=== PATIENT | female | born 1965 | race Caucasian/White ===

== ENCOUNTER 2020-02-17 15:04 | Observation (INO) | payer MEDICAID, SELFPAY ==
[2020-02-17 15:23] VITALS: BMI 28.8
[2020-02-17 15:40] VITALS: BMI 28.8
[2020-02-17 15:46] VITALS: BP 153/80; PULSE 90; RESP 18; TEMP 36.8; O2SAT 99
--- NOTE | 2020-02-17 16:19 | EKG12_ITS ---
Test Reason : PRE OP Blood Pressure : / mmHG Vent. Rate : 081 BPM Atrial Rate : 081 BPM P-R Int : 178 ms QRS Dur : 080 ms QT Int : 370 ms P-R-T Axes : 055 -03 028 degrees QTc Int : 429 ms Normal sinus rhythm Normal ECG No previous ECGs available Confirmed by JOSE DE JESUS LUNDBERG, GERARD ([id number]), video news editor CONRADO UNDERWOOD ([id number]) on 02/23/2020 10:41:35 AM Referred By: ANN Confirmed By:GERARD DELA CRUZ MD
[2020-02-17 16:30] VITALS: BP 153/80; PULSE 90; RESP 18; TEMP 36.8; O2SAT 99; BMI 28.8
--- NOTE | 2020-02-17 16:36 | PCM.PN.HOSP ---
<Angel Neri - Last Filed: 02/17/20 16:36> Reason for Visit: Medical management - going to OR for debridement of left foot osteo Subjective: This is a 54 year old female with pmhx of T1 DM, HTN, HLD, neuropathy, GERD, depression, who has been on an extended course of treatment for left foot osteo. The patient developed a nonhealing ulcer on her left foot that never responded to conservative measures. Ultimately she developed osteomyelitis of this foot and has been treating it with IV vancomycin and oral cipro at home. Yesterday Dr. Pang took her to the OR for debridement, and is taking her for further debridement this evening. Currently the patient is resting comfortably in bed NAD. She denies SOB/cough, fever/chills, nausea, vomiting, abdominal pain. She has no pain at this time. She states she is otherwise feeling well. She is supposed to be on IV vanco and oral cipro into March. Vitals/I&O's: Vital Signs Temp Pulse Resp BP Pulse Ox 98.2 F 90 18 153/80 H 99 02/17/20 16:30 02/17/20 16:30 02/17/20 16:30 02/17/20 16:30 02/17/20 16:30 Oxygen Delivery Method Room Air Weight: 189 lb 6.4 oz Body Mass Index (BMI) 28.8 General: Alert, Oriented x3, Cooperative HEENT: Atraumatic, PERRLA, EOMI, Normocephalic Neck: Supple, No JVD, Negative Carotid Bruits Lungs: Clear to auscultation, Normal air movement Cardiovascular: Regular rate, No murmurs Abdomen: Bowel Sounds Present, Soft, Non Tender Extremities: No edema, Capillary Refill Less than 3 Seconds Skin: No rashes, No breakdown Musculoskeletal: No Tenderness to Palpation of Joints or Extremities Neurological: Cranial nerves II-XII grossly intact Psych/Mental Status: Normal Affect, Appropriate, Alert and oriented to time, place, person, mood and affect Current Medications Heparin Sodium (Beef Lung) (Heparin Pf Lock 10 Units/Ml 50 Units/5 Ml Syringe) 50 units IV UD PRN PRN Reason: PICC Line Heparin Flush Vancomycin IV Pharmacy to Dose (1 ea/ Sodium Chloride) 500 mls @ 250 mls/hr IV X1 PRN; Protocol PRN Reason: Rx to Dose Sodium Chloride (0.9% Saline Lock 10 Ml Syringe) 10 - 40 ml IV UD PRN PRN Reason: Open End PICC Flush Sodium Chloride (0.9 % Nacl (Sterile) Posiflush 10 Ml) 10 - 40 ml IV UD PRN PRN Reason: Port access or dressing change STROKE Vital Signs/Narrative: Vital Signs Temp Pulse Resp BP Pulse Ox 02/17/20 16:30 98.2 F 90 18 153/80 H 99 02/17/20 15:46 98.2 F 90 18 153/80 H 99 Medical Necessity - Tobacco Use Smoking Status: Never smoker Assessment/Plan 1. Left foot osteomyelitis - continue vanco, cipro as previously directed. Going to OR with Dr. Pang for further debridement tonight, had operation yesterday as well. 2. T1 DM - pt without her Pump at this point. Will continue lantus and humalog at prior doses and titrate to response. SSI with accuchecks while NPO. 3. HTN - continue metoprolol 4. HLD - continue zetia 5. GERD - continue PPI 6. Depression - continue effexor and trazodone. Thank you for the opportunity to participate in the care of this patient. This patient was seen by Angel Neri PA-C under the supervision of Doctor Jodee. <Randee Ellsworth - Last Filed: 02/17/20 18:53> Vitals/I&O's: Vital Signs Temp Pulse Resp BP Pulse Ox 98.2 F 90 18 153/80 H 99 02/17/20 16:30 02/17/20 16:30 02/17/20 16:30 02/17/20 16:30 02/17/20 16:30 Oxygen Delivery Method Room Air Weight: 189 lb 6.4 oz Body Mass Index (BMI) 28.8 Laboratory Results 02/17/20 16:29: POC Glucose 236 H 02/17/20 16:31: WBC 5.9, RBC 4.06 L, Hgb 9.2 L, Hct 31.0 L, MCV 76.4 L, MCH 22.7 L, MCHC 29.7 L, RDW Std Deviation 38.8, RDW Coeff of Norberto 14.0, Plt Count 331, MPV 9.3, Immature Gran % (Auto) 0.200, Neut % (Auto) 54.7, Lymph % (Auto) 29.7, [place] % (Auto) 7.3, Eos % (Auto) 7.3 H, Baso % (Auto) 0.8, Absolute Neuts (auto) 3.2, Absolute Lymphs (auto) 1.75, Nucleated RBC % 0 02/17/20 16:31: Sodium 135 L, Potassium 3.7, Chloride 98, Carbon Dioxide 33.0 H, Anion Gap 4 L, BUN 12, Creatinine 1.40 H, Estim Creat Clear Calc 47.42, Est GFR (MDRD) Af Amer 51 L, Est GFR (MDRD) Non-Af 42 L, BUN/Creatinine Ratio 8.6 L, Glucose 223 H, Calcium 9.1 02/17/20 16:31: Hemoglobin A1c 9.3 H 02/17/20 16:31: Vancomycin Trough Pending Current Medications Ciprofloxacin HCl (Ciprofloxacin 500 Mg Tablet) 500 mg PO BID [facility] Dextrose (Dextrose 50%-Water 25 Gm/50 Ml Disp.Syrin) 0 gm IV X1 PRN; Protocol PRN Reason: Hypoglycemia Ezetimibe (Ezetimibe 10 Mg Tablet) 10 mg PO QHS [facility] Glucagon (Glucagon 1 Mg/Ml Syringe) 1 mg IM .X1 PRN PRN Reason: Hypoglycemia Heparin Sodium (Beef Lung) (Heparin Pf Lock 10 Units/Ml 50 Units/5 Ml Syringe) 50 units IV UD PRN PRN Reason: PICC Line Heparin Flush Vancomycin IV Pharmacy to Dose (1 ea/ Sodium Chloride) 500 mls @ 250 mls/hr IV X1 PRN; Protocol PRN Reason: Rx to Dose Insulin Glargine (Insulin Glargine 100 Units/Ml Pen) 52 units SC QHS [facility] Insulin Human Lispro (Insulin Lispro 100 Unit/Ml Insuln.Pen) 0 unit SC ACHS [facility]; Protocol Metoprolol Tartrate (Metoprolol Tartrate 50 Mg Tablet) 50 mg PO BID [facility] Non-Formulary Medication (Vancomycin/Water For Inj (Peg) [Vancomycin 1 Gram/200 Ml Bag]) 1 gm IV DAILY [facility] Pantoprazole Sodium (Pantoprazole Sodium 20 Mg Tablet) 20 mg PO DAILY [facility] Pramipexole Dihydrochloride (Pramipexole Di-Hcl 0.5 Mg Tablet) 1.5 mg PO QHS [facility] Sodium Chloride (0.9% Saline Lock 10 Ml Syringe) 10 - 40 ml IV UD PRN PRN Reason: Open End PICC Flush Sodium Chloride (0.9 % Nacl (Sterile) Posiflush 10 Ml) 10 - 40 ml IV UD PRN PRN Reason: Port access or dressing change Trazodone HCl (Trazodone 100 Mg Tablet) 100 mg PO QHS [facility] Venlafaxine HCl (Venlafaxine Xr 150 Mg Capsule) 150 mg PO DAILY [facility] STROKE Vital Signs/Narrative: Vital Signs Temp Pulse Resp BP Pulse Ox 02/17/20 16:30 98.2 F 90 18 153/80 H 99 02/17/20 15:46 98.2 F 90 18 153/80 H 99 Assessment/Plan Patient seen by Angel Neri PA-C under my supervision. Patient was admitted under the service of podiatry for left toe postop bleeding. Patient had surgery by podiatry on her left foot on account of osteomyelitis. Postop course was complicated by bleeding. A drain was put in but this fell out. Patient has had persistent bleeding so podiatry decided to admit her today for repeat surgery to try to secure hemostasis and place another drain in. Hospitalist service was consulted for medical management. Patient seen and examined. She had no complaints. Review of stems otherwise negative. She does have diabetes mellitus with peripheral neuropathy and states that her A1c at the last check was 10 and this had improved from 14 back in July 2019. He usually uses insulin pump but she did not have it at time of review. Review systems otherwise negative. O/E: Vital Signs Temp Pulse Resp BP Pulse Ox 98.2 F 90 18 153/80 H 99 02/17/20 16:30 02/17/20 16:30 02/17/20 16:30 02/17/20 16:30 02/17/20 16:30 General: Alert, Oriented x3, Cooperative HEENT: Atraumatic, PERRLA, EOMI, Normocephalic Neck: Supple, No JVD, Negative Carotid Bruits Lungs: Clear to auscultation, Normal air movement Cardiovascular: Regular rate, No murmurs Abdomen: Bowel Sounds Present, Soft, Non Tender Extremities: No edema, Capillary Refill Less than 3 Seconds Skin: No rashes, No breakdown; right foot wrapped in ETHAN bandage Musculoskeletal: No Tenderness to Palpation of Joints or Extremities Neurological: Cranial nerves II-XII grossly intact Psych/Mental Status: Normal Affect, Appropriate, Alert and oriented to time, place, person, mood and affect Sinus continue vancomycin and Zosyn as per podiatry. For Elvin surgery by podiatry today to try to secure hemostasis to stop bleeding. She notes that without her insulin pump today so placed on Lantus 52 units nightly and insulin sliding scale. Continue metoprolol for hypertension. She is on Mirapex for restless leg syndrome. Rest as per Angel Neri PA-C's notes which I have reviewed and endorsed. Thank you for the courtesy of the consult. We will continue to follow with you. Please contact hospitalist service if you have any questions or concerns. Inpatient E&M: [id number] Subs Hosp L2
[2020-02-17 16:40] LABS: Bedside Glucose 236 mg/dL (70-110)
[2020-02-17 17:10] LABS: Absolute Lymphocyte Count 1.75 X10^3/uL (0.83-4.51); Absolute Neutrophil Count 3.2 X10^3/uL (2.0-7.7); Basophil# 0.05 X10^3/uL; Basophil% 0.8 % (0-1); Eosinophil# 0.43 X10^3/uL; Eosinophils% 7.3 % (0-5); Hemoglobin 9.2 g/dL (12.0-15.0); Lymphocyte # 1.75 X10^3/ul (4.0); Lymphocyte % 29.7 % (19-41); Mean Corp Hgb Conc 29.7 g/dL (32-36); Mean Corpuscular Hgb 22.7 pg (27.0-32.0); Mean Corpuscular Volume 76.4 fL (81-99); Mean Platelet Vol. 9.3 fl (6.2-12.0); Monocyte# 0.43 X10^3/uL; Monocyte% 7.3 % (0-10); NRBC Flagged by Analyzer 0 % (0-5); Neutrophil # 3.23 X10^3/uL (2.7-7.7); Neutrophil % 54.7 % (47-70); Platelet Count 331 K/mm3 (150-450); RBC Distribution Width SD 38.8 fl (35.1-43.9); Red Blood Count 4.06 M/mm3 (4.2-5.4); White Blood Count 5.9 K/mm3 (4.4-11.0)
[2020-02-17 17:41] LABS: Anion Gap 4 (5-15); BUN 12 mg/dL (7-18); BUN/Creat Ratio 8.6 RATIO (10-20); Calcium,Total 9.1 mg/dL (8.5-10.1); Chloride 98 mmol/L (98-107); EST Glomerular Filtration Rate 42 mL/min (>60); Est Glom Filt Rate - Afr Amer 51 mL/min (>60); Estimated Creatinine Clearance 47.42 ml/min; Glucose 223 mg/dL (74-106); Potassium 3.7 mmol/L (3.5-5.1); Sodium Level 135 mmol/L (136-145)
[2020-02-17 17:53] LABS: Hemoglobin A1c 9.3 % (3.8-5.6)
[2020-02-17] MEDS: Thrombin 5,000 IU Kit (PSA) 5,000 IU Vial 5000 IU (18:20)
[2020-02-17 18:57] LABS: Vancomycin, Trough Level 3.8 ug/mL (5.0-15.0)
--- NOTE | 2020-02-17 19:25 | RAD_ITS ---
STUDY: X-RAY - LEFT FOOT CLINICAL: Female, 54 years old. POST OP DRAIN PLACEMENT, S/P 1ST RAY RESECTION. TECHNIQUE: 2 view(s) of the foot. COMPARISON: None. FINDINGS: Postsurgical changes status post resection of the great toe to the mid shaft of the metatarsal. There is diffuse soft tissue swelling with residual gas in the soft tissues, surgical clips and percutaneously placed drain. RAD/Foot 2 Views IMPRESSION: Postop changes status post resection of the great toe through the first metatarsal Electronically Signed: Lux Yeh MD at 22:51 EST , Service support ,
[2020-02-17] MEDS: 0.9% Saline Lock 10 ML Syringe IV (19:31)
[2020-02-17 20:00] VITALS: BP 168/80; PULSE 94; RESP 16; TEMP 36.7; O2SAT 100
--- NOTE | 2020-02-17 20:03 | PHA.PHARE_ITS ---
Consult Pharmacy has been consulted to manage selected antiobiotic: Vancomycin Type of Consult: New start Suspected Infection: Osteomyelitis Prior Doses of Antibiotics Received/Current Regimen: the patient had been on 1gram IV daily before admission to the hospital but e vidently had not had a dose since 2 days ago Labs: Sodium 135 mmol/L (136-145) L 02/17/20 16:31 Potassium 3.7 mmol/L (3.5-5.1) 02/17/20 16:31 Chloride 98 mmol/L (98-107) 02/17/20 16:31 Carbon Dioxide 33.0 mmol/L (21.0-32.0) H 02/17/20 16:31 Anion Gap 4 (5-15) L 02/17/20 16:31 BUN 12 mg/dL (7-18) 02/17/20 16:31 Creatinine 1.40 mg/dL (0.55-1.02) H 02/17/20 16:31 Est GFR (MDRD) Af Amer 51 mL/min (>60) L 02/17/20 16:31 Est GFR (MDRD) Non-Af 42 mL/min (>60) L 02/17/20 16:31 BUN/Creatinine Ratio 8.6 RATIO (10-20) L 02/17/20 16:31 Glucose 223 mg/dL (74-106) H 02/17/20 16:31 Vancomycin Trough 3.8 ug/mL (5.0-15.0) L 02/17/20 16:31 Weight used for dosin.9 kg Estimated Creatinine Clearance: 53.9ml/min Goal Trough: 15-20 mcg/mL Pharmacy Plan for Drug Dosing: Since the patient had been on vancomycin upon admission, a trough level was taken to see where it was at. That came back at 3.8. This is well below the goal of 15-20 so will give an initial dose of 1250mg x1, then continue with 750mg IV q12h per [facility] dosing protocol. Will order another trough to be drawn before the 4th dose here at the hospital. The patient's CrCl of 53.9ml/min was calculated using an adjusted body weight of 72.7kg. Pharmacy Service will continue to monitor and adjust dosing as required. Follow-Up Labs: Trough Vancomycin Labs to be done on [date and time ordered]: 02/19/20 07:30
--- NOTE | 2020-02-17 21:07 | OP.PCM_ITS ---
Report of Operation Date of Procedure: 02/17/20 Pre-Operative Diagnosis: post-op bleeding/hematoma Post-Operative Diagnosis: Controlled post-op bleeding/hematoma, left foot Surgery/Procedure Performed:: Incision and drainage of left foot. Placement of percutaneous drain Description of Surgical Findings:: no abscess noted. Minimal clot found intra-op NO active bleeding present. Type of Anesthesia:: Local Drains: percutaneous tls drain Estimated Blood Loss (mL): 5 ml Description of Procedure: Patient is a 54 year old female who underwent partial 1st ray amputation of left foot yesterday at [facility] for ongoing osteomyelitis. During surgery, bleeding was controlled with topical thrombin, gel foam and surgicel. A percutaneous drain was placed but upon patient arrival home, she was trying to change her dressing and she accidently pulled the drain from her foot. I had patient present to the office today and there was mix of serous drainage mixed with blood on her dressing. I discussed the findings from my exam today. we discussed monitoring vs removing suture and treating with wound vac vs taking her to the operating room, removing suture and placing drain in the left foot. This patient does not wish to use wound vac if at possible. For this reason, I admitted her to the hospital with plans of taking her to the operating room for further evaluation of left foot postop bleeding. I discussed risks of procedure not limited to infection, pain, swelling, bleeding, hematoma, slow wound healing, need for wound vac should the wound not progress as expected. I informed patient that her poor control of diabetes does risk slow healing. she understands this. I informed patient that if her wound fails to progress, will require wound vac for secondary closure. All risks benefits and alternatives discussed. Patient consents to proceed with I&D and placement of drain. Patient was transferred to operating room and placed on the operating room table in supine position. A local anesthetic was injected to the left foot. The left lower extremity was prepped and draped in the usual aseptic technique. A time out was then performed making note of procedure. ATtention was then directed to the left foot. All suture was removed. Manual compression of wound allowed opening of the incision. I evaluated the left foot. There was no abscess present. A very small clot was found and approximately 2 mm. There was no active bleeding present. The wound was irrigated with saline. Topical thrombin mixed with gel foam was placed within incision and compression was held for approximately 7 minutes. The gel foam was removed. A percutaneous tls drain was placed and secured in place with suture. Testing of the drain to see if pull out would occur found no migration of drain. The surgical incision was then closed with 3-0 nylon. the wound edges came together nicely without tension. Aquacel was applied to incision followed by maile blackmon abd and jeanine. Patient was then transferred to [facility] floor in stable condition. will continue with vancomycin IV and cipro. will evaluate patient on pod #1. possible discharge tomorrow if medically stable.
[2020-02-17] MEDS: Insulin Lispro 100 UNIT/ML INSULN.PEN SC (21:34)
[2020-02-17] MEDS: Pramipexole Di-HCl 0.5 MG Tablet 1.5 MG PO (21:39)
[2020-02-17] MEDS: traZODone 100 MG Tablet PO (21:39)
[2020-02-17] MEDS: Ezetimibe 10 MG Tablet PO (21:39)
[2020-02-17 21:40] VITALS: BP 168/80; PULSE 94
[2020-02-17] MEDS: Ciprofloxacin 500 MG Tablet PO (21:40)
[2020-02-17] MEDS: Metoprolol Tartrate 50 MG Tablet PO (21:40)
[2020-02-18 00:46] LABS: Bedside Glucose 446 mg/dL (70-110)
[2020-02-18 02:50] VITALS: BP 150/90; PULSE 84; RESP 18; TEMP 36.6; O2SAT 99
--- NOTE | 2020-02-18 06:58 | PCM.PN.SRG ---
Subjective: patient seen at bedside s/p I&D with placement of drain. patient denies any pain. patient denies n/v/f/c. Objective: Patient is alert and orientated x 3. patient does not appear in any distress. left foot with surgical incision approximated without redness or drainage. there is very slight maceration along central incision. Drain is in place and securely anchored to skin. There is approximately 4 cc of clear drainage mixed with blood. no active bleeding noted. no mei pus. left foot appears stable xrays of left foot reviewed. there are post-surgical changes consistent with recent partial first ray resection. mild soft-tissue swelling with post-op air consistent with recent surgery. - Physical Exam Vitals/I&O's: Vital Signs Temp Pulse Resp BP Pulse Ox 97.8 F 84 18 150/90 H 99 02/18/20 02:50 02/18/20 02:50 02/18/20 02:50 02/18/20 02:50 02/18/20 02:50 Oxygen Delivery Method Room Air Weight: 85.91 kg Body Mass Index (BMI) 28.8 Intake and Output for Last 24 Hours 02/16/20 02/17/20 02/18/20 23:59 23:59 23:59 Intake Total 275 / 275 1200 / 1200 Output Total 704 / 704 Balance 275 / 275 496 / 496 Laboratory Results 02/17/20 16:29: POC Glucose 236 H 02/17/20 16:31: WBC 5.9, RBC 4.06 L, Hgb 9.2 L, Hct 31.0 L, MCV 76.4 L, MCH 22.7 L, MCHC 29.7 L, RDW Std Deviation 38.8, RDW Coeff of Norberto 14.0, Plt Count 331, MPV 9.3, Immature Gran % (Auto) 0.200, Neut % (Auto) 54.7, Lymph % (Auto) 29.7, [place] % (Auto) 7.3, Eos % (Auto) 7.3 H, Baso % (Auto) 0.8, Absolute Neuts (auto) 3.2, Absolute Lymphs (auto) 1.75, Nucleated RBC % 0 02/17/20 16:31: Sodium 135 L, Potassium 3.7, Chloride 98, Carbon Dioxide 33.0 H, Anion Gap 4 L, BUN 12, Creatinine 1.40 H, Estim Creat Clear Calc 47.42, Est GFR (MDRD) Af Amer 51 L, Est GFR (MDRD) Non-Af 42 L, BUN/Creatinine Ratio 8.6 L, Glucose 223 H, Calcium 9.1 02/17/20 16:31: Hemoglobin A1c 9.3 H 02/17/20 16:31: Vancomycin Trough 3.8 L 02/17/20 21:31: POC Glucose 446 H Current Medications Ciprofloxacin HCl (Ciprofloxacin 500 Mg Tablet) 500 mg PO BID [facility] Last Admin: 02/17/20 21:40 Dose: 500 mg Documented by: Dextrose (Dextrose 50%-Water 25 Gm/50 Ml Disp.Syrin) 0 gm IV X1 PRN; Protocol PRN Reason: Hypoglycemia Ezetimibe (Ezetimibe 10 Mg Tablet) 10 mg PO QHS [facility] Last Admin: 02/17/20 21:39 Dose: 10 mg Documented by: Glucagon (Glucagon 1 Mg/Ml Syringe) 1 mg IM .X1 PRN PRN Reason: Hypoglycemia Heparin Sodium (Beef Lung) (Heparin Pf Lock 10 Units/Ml 50 Units/5 Ml Syringe) 50 units IV UD PRN PRN Reason: PICC Line Heparin Flush Vancomycin IV Pharmacy to Dose (1 ea/ Sodium Chloride) 500 mls @ 250 mls/hr IV X1 PRN; Protocol PRN Reason: Rx to Dose Sodium Chloride () 250 mls @ 15 mls/hr IV .[id number] PRN PRN Reason: Saline Flush Sodium Chloride () 250 mls @ 15 mls/hr IV .[id number] PRN PRN Reason: Additional IVPB Infusion Vancomycin HCl 750 mg/ Sodium (Chloride) 265 mls @ 250 mls/hr IV Q12H [facility] Insulin Glargine (Insulin Glargine 100 Units/Ml Pen) 52 units SC QHS [facility] Last Admin: 02/17/20 21:35 Dose: 52 u Documented by: Insulin Human Lispro (Insulin Lispro 100 Unit/Ml Insuln.Pen) 0 unit SC ACHS [facility]; Protocol Last Admin: 02/17/20 21:34 Dose: 7 u Documented by: Metoprolol Tartrate (Metoprolol Tartrate 50 Mg Tablet) 50 mg PO BID [facility] Last Admin: 02/17/20 21:40 Dose: 50 mg Documented by: Nutritional Formula (Lactose Free) (Glucerna Shake 120 Ml Liquid) 120 ml PO TIDCM [facility] Pantoprazole Sodium (Pantoprazole Sodium 20 Mg Tablet) 20 mg PO DAILY [facility] Pramipexole Dihydrochloride (Pramipexole Di-Hcl 0.5 Mg Tablet) 1.5 mg PO QHS [facility] Last Admin: 02/17/20 21:39 Dose: 1.5 mg Documented by: Sodium Chloride (0.9% Saline Lock 10 Ml Syringe) 10 - 40 ml IV UD PRN PRN Reason: Open End PICC Flush Last Admin: 02/17/20 19:31 Dose: 10 ml Documented by: Sodium Chloride (0.9 % Nacl (Sterile) Posiflush 10 Ml) 10 - 40 ml IV UD PRN PRN Reason: Port access or dressing change Trazodone HCl (Trazodone 100 Mg Tablet) 100 mg PO QHS [facility] Last Admin: 02/17/20 21:39 Dose: 100 mg Documented by: Venlafaxine HCl (Venlafaxine Xr 150 Mg Capsule) 150 mg PO DAILY [facility] Medical Necessity - Tobacco Use Smoking Status: Never smoker Assessment/Plan patient is s/p partial first ray resection with post-op bleeding. no bleeding noted on intra-op assessment. post op dressing change performed today. foot appears stable. I am going to leave drain in for a few more days. I will have patient go home today and I will provide her with tubing to change drain if necessary. I will have her change dressing daily consisting of aquacel to incision, 4x4 guaze, maile and jeanine. patient is permitted to ambulate to left heel only. ok for discharge once medically stable.
[2020-02-18] MEDS: Insulin Lispro 100 UNIT/ML INSULN.PEN SC ×2 (07:01→12:18)
[2020-02-18 07:40] VITALS: BP 159/79; PULSE 79; RESP 16; TEMP 37; O2SAT 100
[2020-02-18 07:41] VITALS: PULSE 79
[2020-02-18] MEDS: Metoprolol Tartrate 50 MG Tablet PO (07:41)
[2020-02-18] MEDS: Venlafaxine XR 150 MG Capsule PO (07:41)
[2020-02-18] MEDS: Ciprofloxacin 500 MG Tablet PO (07:41)
[2020-02-18] MEDS: Pantoprazole Sodium 20 MG Tablet PO (07:41)
[2020-02-18] MEDS: Glucerna Shake 120 ML LIQUID PO ×2 (07:51→12:17)
[2020-02-18] MEDS: 0.9 % NaCl (Sterile) Posiflush 10 mL IV (08:00)
--- NOTE | 2020-02-18 08:02 | PN_ITS ---
Reason for Visit: Osteomyelitis involving the left foot Subjective: Patient is a 54-year-old lady with history of osteomyelitis involving the left foot who underwent debridement on 02/17/2020. Hospitalist service was consulted to assist with management of patient medical comorbidities Objective: GENERAL: cooperative HEENT: Atraumatic; EYES; Anicteric, Normal Conjunctiva NECK; supple, normal thyroid, RESPIRATORY: Diminished to auscultation CARDIOVASCULAR: Regular S1 S2, GI: soft, normoactive bowel sounds, : No Renal angle tenderness; EXTREMITIES: Left foot in surgical dressing MUSCULOSKELETAL: no muscle waisting NEURO: Awake; no lateralizing signs. SKIN: No Rash PSYCH; Flat affect Vitals/I&O's: Vital Signs Temp Pulse Resp BP Pulse Ox 97.8 F 79 18 150/90 H 99 02/18/20 02:50 02/18/20 07:41 02/18/20 02:50 02/18/20 02:50 02/18/20 02:50 Oxygen Delivery Method Room Air Weight: 85.91 kg Body Mass Index (BMI) 28.8 Intake and Output for Last 24 Hours 02/16/20 02/17/20 02/18/20 23:59 23:59 23:59 Intake Total 275 / 275 1200 / 1200 Output Total 704 / 704 Balance 275 / 275 496 / 496 Laboratory Results 02/17/20 16:29: POC Glucose 236 H 02/17/20 16:31: WBC 5.9, RBC 4.06 L, Hgb 9.2 L, Hct 31.0 L, MCV 76.4 L, MCH 22.7 L, MCHC 29.7 L, RDW Std Deviation 38.8, RDW Coeff of Norberto 14.0, Plt Count 331, MPV 9.3, Immature Gran % (Auto) 0.200, Neut % (Auto) 54.7, Lymph % (Auto) 29.7, [place] % (Auto) 7.3, Eos % (Auto) 7.3 H, Baso % (Auto) 0.8, Absolute Neuts (auto) 3.2, Absolute Lymphs (auto) 1.75, Nucleated RBC % 0 02/17/20 16:31: Sodium 135 L, Potassium 3.7, Chloride 98, Carbon Dioxide 33.0 H, Anion Gap 4 L, BUN 12, Creatinine 1.40 H, Estim Creat Clear Calc 47.42, Est GFR (MDRD) Af Amer 51 L, Est GFR (MDRD) Non-Af 42 L, BUN/Creatinine Ratio 8.6 L, Glucose 223 H, Calcium 9.1 02/17/20 16:31: Hemoglobin A1c 9.3 H 02/17/20 16:31: Vancomycin Trough 3.8 L 02/17/20 21:31: POC Glucose 446 H Current Medications Ciprofloxacin HCl (Ciprofloxacin 500 Mg Tablet) 500 mg PO BID [facility] Last Admin: 02/18/20 07:41 Dose: 500 mg Documented by: Dextrose (Dextrose 50%-Water 25 Gm/50 Ml Disp.Syrin) 0 gm IV X1 PRN; Protocol PRN Reason: Hypoglycemia Ezetimibe (Ezetimibe 10 Mg Tablet) 10 mg PO QHS [facility] Last Admin: 02/17/20 21:39 Dose: 10 mg Documented by: Glucagon (Glucagon 1 Mg/Ml Syringe) 1 mg IM .X1 PRN PRN Reason: Hypoglycemia Heparin Sodium (Beef Lung) (Heparin Pf Lock 10 Units/Ml 50 Units/5 Ml Syringe) 50 units IV UD PRN PRN Reason: PICC Line Heparin Flush Vancomycin IV Pharmacy to Dose (1 ea/ Sodium Chloride) 500 mls @ 250 mls/hr IV X1 PRN; Protocol PRN Reason: Rx to Dose Sodium Chloride () 250 mls @ 15 mls/hr IV .[id number] PRN PRN Reason: Saline Flush Sodium Chloride () 250 mls @ 15 mls/hr IV .[id number] PRN PRN Reason: Additional IVPB Infusion Vancomycin HCl 750 mg/ Sodium (Chloride) 265 mls @ 250 mls/hr IV Q12H [facility] Last Admin: 02/18/20 07:51 Dose: 250 mls/hr Documented by: Insulin Glargine (Insulin Glargine 100 Units/Ml Pen) 40 units SC BID [facility] Insulin Human Lispro (Insulin Lispro 100 Unit/Ml Insuln.Pen) 0 unit SC [facility]; Protocol Last Admin: 02/18/20 07:01 Dose: 4 u Documented by: Insulin Human Lispro (Insulin Lispro 100 Unit/Ml Insuln.Pen) 15 unit SC TIDAC [facility] Metoprolol Tartrate (Metoprolol Tartrate 50 Mg Tablet) 50 mg PO BID [facility] Last Admin: 02/18/20 07:41 Dose: 50 mg Documented by: Nutritional Formula (Lactose Free) (Glucerna Shake 120 Ml Liquid) 120 ml PO TIDCM [facility] Last Admin: 02/18/20 07:51 Dose: 120 ml Documented by: Pantoprazole Sodium (Pantoprazole Sodium 20 Mg Tablet) 20 mg PO DAILY [facility] Last Admin: 02/18/20 07:41 Dose: 20 mg Documented by: Pramipexole Dihydrochloride (Pramipexole Di-Hcl 0.5 Mg Tablet) 1.5 mg PO QHS [facility] Last Admin: 02/17/20 21:39 Dose: 1.5 mg Documented by: Sodium Chloride (0.9% Saline Lock 10 Ml Syringe) 10 - 40 ml IV UD PRN PRN Reason: Open End PICC Flush Last Admin: 02/17/20 19:31 Dose: 10 ml Documented by: Sodium Chloride (0.9 % Nacl (Sterile) Posiflush 10 Ml) 10 - 40 ml IV UD PRN PRN Reason: Port access or dressing change Trazodone HCl (Trazodone 100 Mg Tablet) 100 mg PO QHS [facility] Last Admin: 02/17/20 21:39 Dose: 100 mg Documented by: Venlafaxine HCl (Venlafaxine Xr 150 Mg Capsule) 150 mg PO DAILY [facility] Last Admin: 02/18/20 07:41 Dose: 150 mg Documented by: STROKE Vital Signs/Narrative: Vital Signs Pulse 02/18/20 07:41 79 Medical Necessity - Tobacco Use Smoking Status: Never smoker Assessment/Plan Patient is a 54-year-old lady with history of osteomyelitis involving the left foot who underwent debridement on 02/16/2020. Hospitalist service was consulted to assist with management of patient medical comorbidities 1. Osteomyelitis involving the left foot ?Patient underwent debridement by Dr. Pang on 02/16/2020. Patient underwent repeat surgery on 02/17/2020 as a result of bleeding patient currently on broad- spectrum antibiotic therapy with vancomycin and ciprofloxacin prescribed by an infectious disease specialist at [facility]. 2. Diabetes mellitus type 2 ?Uncontrolled with hyperglycemia patient is on long-acting insulin did adjust dose and added scheduled short acting premeal insulin in addition to a sliding scale 3. Hypertension - Blood pressure controlled, home medications continued with dose adjustment as needed 4. Dyslipidemia -Patient is on Zetia, continued at home dose 5. GERD patient is on PPI 6. DVT prophylaxis ?Systemic anticoagulation held in view of patient bleeding will defer subsequent decision to podiatry 7. Depression Patient is on SSRI Inpatient E&M: 43052 Subs Hosp L2
[2020-02-18] MEDS: 0.9% Saline Lock 10 ML Syringe IV ×3 (08:07→10:23)
[2020-02-18] MEDS: Insulin Lispro 100 UNIT/ML INSULN.PEN 15 UNIT SC ×2 (08:17→12:18)
[2020-02-18 08:25] LABS: Bedside Glucose 290 mg/dL (70-110)
--- NOTE | 2020-02-18 10:13 | DCINST_ITS ---
Discharge Activity: May Drive, May Not Shower - keep foot dry, - - use cane Weight Bearing Status: Partial weight bearing - left foot Keep extremity elevated above heart level: Left Leg Call your doctor if your incision/area has: Continuous Slow Oozing, Sudden Increased Bleeding, Increased Pain/ Swelling, Increased Redness, Foul Smelling Discharge Call your doctor if you observe: Fever of 101 or Higher, Change in Color Remove Dressing in (days):: 1 Cleanse incision/area with: - - apply aquacel to incision. do not remove drain Allergies/Adverse Reactions: Allergies shellfish derived Allergy (Verified 02/17/20 15:26) Anaphylaxis Sulfa (Sulfonamide Antibiotics) Adverse Reaction (Verified 02/17/20 15:26) Shortness of breath Medications to take at Discharge Aspirin 81 mg PO QHS 02/17/20 Ciprofloxacin [Cipro] 500 mg PO BID 02/17/20 Estradiol 0.5 mg PO DAILY 02/17/20 Ezetimibe [Zetia] 10 mg PO QHS 02/17/20 Insulin Glargine [Lantus (BKC)] 52 units SC QHS 02/17/20 Insulin Lispro [Humalog KwikPen] See Protocol SQ ACHS 02/17/20 Metoprolol Tartrate [Lopressor (Beta Mireille)] 50 mg PO BID 02/17/20 Omeprazole 20 mg PO DAILY 02/17/20 Ropinirole HCl [Requip] 5 mg PO QHS 02/17/20 Vancomycin/Water For Inj (Peg) [Vancomycin 1 Gram/200 ml Bag] 1 gm IV DAILY 02/17/20 Venlafaxine XR [Effexor Xr] 150 mg PO DAILY 02/17/20 traZODone [Desyrel] 100 mg PO QHS 02/17/20 Primary Care Physician: LAINE GALAN [Other] Test Results: Test results from this visit will be discussed in further detail at your follow- up appointment, if applicable.
[2020-02-18] MEDS: Alteplase 2 MG/2 ML Vial IV (10:22)
[2020-02-18 11:21] LABS: Bedside Glucose 231 mg/dL (70-110)
[2020-02-18 12:20] VITALS: BP 149/84; PULSE 83; RESP 16; TEMP 36.6; O2SAT 95
[2020-02-18 19:01] LABS: Bedside Glucose 303 mg/dL (70-110)
== END 2020-02-18 12:28 | disposition home or self-care (01) ==
PROVIDERS: Anesthesiology; Physician Assistant; Admitting Provider Podiatrist Foot & Ankle Surgery; Visit Provider Internal Medicine
PROC: (CPT 10140; principal; 2020-02-17 17:50)
DX: L76.32 Postprocedural hematoma of skin and subcutaneous tissue following other procedure (principal); M86.072 Acute hematogenous osteomyelitis, left ankle and foot; F32.9 Major depressive disorder, single episode, unspecified; K21.9 Gastro-esophageal reflux disease without esophagitis; E78.5 Hyperlipidemia, unspecified; I10 Essential (primary) hypertension; E10.9 Type 1 diabetes mellitus without complications; E10.69 Type 1 diabetes mellitus with other specified complication; E10.42 Type 1 diabetes mellitus with diabetic polyneuropathy; G25.81 Restless legs syndrome; E10.65 Type 1 diabetes mellitus with hyperglycemia; Z79.4 Long term (current) use of insulin; Z79.82 Long term (current) use of aspirin; Z79.899 Other long term (current) drug therapy; Z96.41 Presence of insulin pump (external) (internal)
CPT/HCPCS: 10140; 73620; 80048; 80202; 82962; 83036; 85025; 93005; 96365; 96366; 96375; 99218; J2997; J7050; A4216; G0378; G0379